=== PATIENT | female | born 1970 ===

== ENCOUNTER 2019-11-15 19:51 | Emergency (ER) | payer SELFPAY ==
--- OUTSIDE RECORDS SUMMARY | 2019-11-15 19:54 | XMS REPORT | Continuity of Care Document ---
:1970 Author Organization [facility] t Address [address] [place] [address] Care Team Providers Name Role Phone Asked, No Pcp Primary Care Physician Unavailable Cara RN Attending Clinician Unavailable Glory Gonzalez MD Attending Clinician ARLIN Attending Clinician Unavailable Payers Payer Name Policy Type Policy Effective Date Expiration Date Sour ce Number CIGNACIGNA OPEN [id number] 2006 [place] ACCESS/NETWORKxx 00:00:00 Methodis t [id number] 07-PresentHMO Problems Condition Condition Condition Status Onset Resolution Last Treating Co mments Source Name Details Category Date Date Treatment Clinician Date Depression Depression Problem Active U nivers [email or web address].[email or web address] [facility] [place] [facility] Pain in Pain in Problem Active Univers eye eye HL7.CCDAR2 [facility] [place] [facility] Vision Vision Problem Active Univers loss loss HL7.CCDAR2 [facility] [place] [facility] Fatigue Fatigue Problem Active Univers HL7.CCDAR2 [facility] [place] [facility] Blurry Blurry Problem Active Univers vision vision HL7.CCDAR2 [facility] [place] [facility] Dizziness Dizziness Problem Active Uni vers HL7.CCDAR2 [facility] [place] [facility] Migraines Migraines Problem Active Uni vers HL7.CCDAR2 [facility] [place] [facility] Difficulty Difficulty Problem Active U nivers in walking in walking HL7.CCDAR2 [facility] [place] [facility] Muscle Muscle Problem Active Univers weakness weakness HL7.CCDAR2 [facility] [place] [facility] Hypertensi Hypertensi Problem Active U nivers on on HL7.CCDAR2 [facility] [place] [facility] Muscle Muscle Problem Active Univers spasm spasm HL7.CCDAR2 [facility] [place] [facility] History of History of Problem Resolve Univers depression depression HL7.CCDAR2 d [facility] [place] [facility] History of History of Problem Resolve Univers essential essential HL7.CCDAR2 d it[place] hypertens[place]ens[place] [facility] Cervicalgi Cervicalgi Problem Active U nivers a a HL7.CCDAR2 [facility] [place] [facility] Vestibular Vestibular Problem Active U nivers migraine migraine HL7.CCDAR2 [facility] [place] [facility] Decreased Decreased Problem Active Uni vers alertness alertness HL7.CCDAR2 [facility] [place] [facility] Allergies, Adverse Reactions, Alerts This patient has no known allergies or adverse reactions. Family History Family Member Diagnosis Comments Start Date Stop Date Source Unknown Family FHx: stroke Family History Unive rsity of Member [place] [facility] natural Family history of Univers ity of daughter diabetes mellitus [place] [facility] Mother Family history of Univers ity of hypertension [place] [facility] Father Family history of Univers ity of cardiac disorder [place] [facility] Sister Family history of Univers ity of hypertension [place] [facility] Brother Family history of Univers ity of hypertension [place] [facility] Natural brother Hypertension [place] Natural father Diabetes [place] Natural father Heart disease [place] Natural father Lung cancer [place] Natural mother Hypertension [place] Natural sister Diabetes [place]ast[place] Natural sister Hypertension [place] Natural sister Thyroid disease [place] Rastaf[place] Social History Social Habit Start Date Stop Date Quantity Comments Source History [facility] Meth odist Alcohol Std Drinks History [facility] Alcohol Binge Sex Assigned At [facility] ethodist Tobacco use and 2019-07-17 2019-07-17 Never used [facility] ethodist exposure 00:00:00 00:00:00 Alcohol intake 2019-07-17 2019-07-17 Lifetime [facility] [place] [facility] thodist 00:00:00 00:00:00 non-drinker (finding) History SDOH 2018-11-22 2018-11-22 1 [place] Meth odist Alcohol Frequency 00:00:00 00:00:00 Smoking Status Start Date Stop Date Source [facility]ations Ordered Filled Start Stop Current Ordering Indication Dosage Frequency Signature Comments Components Source Medication Medication Date Date Medication? Clinician (SIG) Name Name propranolol Yes Intractable 60mg QD Take 1 Mcdaniel [place] (INDERAL 8-13 chronic capsule Me thodi [place]) 60 MG 00:00: migraine ([address] 24 hr 00 without total) by capsule aura and mouth without daily. status migrainosus QUEtiapine 2020- Yes Mixed 50mg QD TAKE 1 Vijay ston (SEROquel) 8 11-07 anxiety and TABLET (50 Methodi 50 MG 00:00: 23:59 depressive MG TOTAL) st tablet 00 :00 disorder BY MOUTH NIGHTLY FOR 90 DAYS. magnesium 2020- Yes Migraine 400mg Q.5D Take 1 [place] oxide 6- without tablet Methodi (MAG-OX) 00:00: aura and ([address] 400 mg 00 without total) by (241.3 mg status mouth 2 magnesium) migrainosus (two) tablet , not times a intractable day. ergocalcife 2019- Yes [id number] Q7D Take [place] 5-27 50,000 Methodi (VITAMIN 15:18: Units by st D2) 50,000 47 mouth once unit a week. capsule QUEtiapine 2019- No Mixed 50mg QD Take 1 Vijay ston (SEROqueL) 18 08-09 anxiety and tablet (50 Methodi 50 MG 00:00: 00:00 depressive mg total) st tablet 00 :00 disorder by mouth nightly for 90 days. QUEtiapine 2019- No 25mg QD Take 25 mg Mcdaniel (SEROquel) 07-02 05-13 by mouth Meth stuart 25 MG 12:48: 00:[address] tablet 23 :00 QUEtiapine 2019- No Mixed 25mg QD Take 1 Vijay ston (SEROquel) 5- 05-18 anxiety and tablet (25 Methodi 25 MG 00:00: 00:00 depressive mg total) st tablet 00 :00 disorder by mouth nightly. buPROPion 2019-2020- No Mixed 150mg QD Take 1 Vijay ston XL 06-16 04-27 anxiety and tablet Metho di (WELLBUTRIN 00:00: 23:59 depressive ([address] XL) 150 MG 00 :00 disorder total) by 24 hr mouth tablet daily. propranolol 2019-2019- No Intractable TAKE 1 Mcdaniel [place] (INDERAL 1-29 08-13 chronic CAPSULE BY Methodi LA) 60 MG 00:00: 00:[address] 24 hr 00 :00 without EVERY DAY capsule aura and without status migrainosus propranolol 2018-02- Intractable 60mg QD Take 1 Jonas [place] (INDERAL 02-20 chronic capsule M ethodi LA) 60 MG 00:00: 00:00 migraine (60 mg s t 24 hr 00 :00 without total) by capsule aura and mouth without daily. status migrainosus QUEtiapine 2018-02- No Moderate 25mg QD Take 1 Mcdaniel (SEROquel) 0-25 11-24 episode of tablet (25 Methodi 25 MG 00:00: 23:59 recurrent mg total) s t tablet 00 :00 major by mouth depressive nightly disorder for 30 (HCC) days. QUEtiapine 2018-02- No Moderate 25mg QD Take 1 Mcdaniel (SEROquel) 0-03 10-25 episode of tablet (25 Methodi 25 MG 00:00: 00:00 recurrent mg total) s t tablet 00 :00 major by mouth depressive nightly disorder for 30 (HCC) days. prochlorper 2018- No 10mg Q6H Take 1 Vijay ston azine 9-20 10-20 tablet (10 Methodi (COMPAZINE) 00:00: 23:59 mg total) st 10 MG 00 :00 by mouth tablet every 6 (six) hours as needed for nausea or vomiting for up to 30 days. keTOROlac 2018- No 10mg Q6H Take 1 [place] (TORadol) 9-20 09-25 tablet (10 Met hodi 10 mg 00:00: 23:59 mg total) st tablet 00 :00 by mouth every 6 (six) hours as needed for moderate pain for up to 5 days. cyclobenzap Yes 10mg Take 10 mg Mcdaniel rine 9-13 by mouth Methodi (FLEXERIL) 00:00: as needed. s t 10 mg 00 tablet losartan 2019- No 25mg QD Take 25 mg [place] (COZAAR) 25 9-13 05-18 by mouth Met hodi MG tablet 00:00: 00:[address] 00 :00 magnesium 2019- No 400mg Q.5D Take 400 [place] oxide 8-17 06-01 mg by Methodi (MAG-OX) 00:00: 00:[address] 400 mg 00 :00 (two) (241.3 mg times a magnesium) day. tablet sertraline No 100mg QD Take 100 [place] (ZOLOFT) 8-14 05-18 mg by Methodi 100 MG 00:00: 00:[address] tablet 00 :00 daily. Zoloft 50 Zoloft 50 Yes NELLY U nivers MG Oral MG Oral 1-04 SAMUDRALWA ity of Tablet Tablet 00:00: R M.D. [place] 00 Physici ans Losartan Losartan Yes NELLY Uni vers Potassium Potassium 1-04 SAMUDRALWA ity of 25 MG Oral 25 MG Oral 00:00: R M.D. [place] Tablet Tablet 00 Physici ans Cyclobenzap Cyclobenzap Yes NELLY Q0.3333D TAKE 1 Univers rine HCl - rine HCl - 1-04 SAMUDRALWA TABLET 3 ity of 10 MG Oral 10 MG Oral 00:00: R M.D. TIMES [place] Tablet Tablet 00 DAILY Physici NEEDED. ans Sertraline Sertraline Yes Uni vers HCl - 100 HCl - 100 ity o f MG Oral MG Oral [place] Tablet Tablet Physici ans Losartan Losartan Yes Univers Potassium Potassium ity o f 25 MG Oral 25 MG Oral [place] as Tablet Tablet Physici ans Cyclobenzap Cyclobenzap Yes U nivers rine HCl - rine HCl - ity of 10 MG Oral 10 MG Oral [place] as Tablet Tablet Physici ans Magnesium Magnesium Yes Unive rs 100 MG TABS 100 MG TABS i ty of [place] [facility] Vital Signs Vital Name Observation Time Observation Value Comments Source Body height 2019-07-17 172.7 cm [place] 15:17: Rastaf[place] Body weight 2019-07-17 78.019 kg [place] 15:17: Rast[place] BMI 2019-07-17 26.15 kg/m2 [place] 15:17: [place]ast[place] Systolic blood 2019-07-08 125 mm[Hg] [place] pressure 13:19:00 [place] Diastolic blood 2019-07-08 81 mm[Hg] [place] pressure 13:19:00 [place] Heart rate 2019-07-08 72 /min [place] 13:19:00 [place] Body temperature 2019-07-08 36.33 Chantelle [place] 13:19:00 [place]ast[place] BP Systolic 2018-02-23 164 mm[Hg] Location: [facility] 09:33:00 Position: [place] [facility] Sitting BP Diastolic 2018-02-23 95 mm[Hg] Location: [facility] 09:33:00 Position: [place] [facility] Height 2018-02-23 68 [in_us] [facility] 09:33:00 [place] [facility] Weight 2018-02-23 166 [lb_av] [facility] 09:33:00 [place] [facility] Body Mass Index 2018-02-23 25.24 kg/m2 University o f Calculated 09:33:00 [place] [facility] Temperature 2018-02-23 97.7 [degF] Method: Oral [facility] 09:33:00 [place] [facility] Heart Rate 2018-02-23 80 /min [facility] 09:33:00 [place] [facility] O2 SAT 2018-02-23 96 % Source: RA [facility] 09:33:00 [place] [facility] Procedures Procedure Date / Time Performed Performing Clinician Sour e GENERAL SLEEP STUDY 2018-12-31 07:05:00 Salvador Gonzalez Obada MRI Brain w/wo 2018-02-23 00:00:00 [place] f [place] contrast [id number] Physicians Plan of Care Planned Activity Planned Date Details Comments Source Future Scheduled 2019-09-21 INFLUENZA VACCINE Beto Walter Test 00:00:00 [code = INFLUENZA VACCINE] Future Scheduled 1991 Screening for [facility] [place] [facility] thodist Test 00:00:00 malignant neoplasm of cervix (procedure) [code = 856593591] Encounters Start End Encounter Admission Attending Care Care Encounter Source Date/Time Date/Time Type Type Clinicians Facility Department ID 2019-07-18 2019-07-18 Outpatient [facility] [id number] [place] 00:00:00 00:00:00 [address] 2019-07-08 2019-07-08 Outpatient [facility] [id number] [place] 00:00:00 00:00:00 [facility] 2019-06-17 2019-06-17 Outpatient [facility] [id number] [place] 00:00:00 00:00:00 [address] 2018-12-26 2018-12-26 Outpatient [facility] [id number] [place] 00:00:00 00:00:00 SALVADOR 565 Michelle [facility] 2018-07-30 2018-07-30 Appointmen ARLIN HERNANDEZ [facility] [id number] [facility] 16:00:00 16:00:00 t; , Mago VILLEGAS M.D., ROHINI Physi ci MKeagan ans 2018-02-23 2018-02-23 Appointmen ARLIN HERNANDEZ Neurology [id number] [facility] [place] [facility] 09:00:00 09:00:00 t; , Mago VILLEGAS M.D., ROHINI Physi ci MKeagan ans Results This patient has no known results.
--- OUTSIDE RECORDS SUMMARY | 2019-11-15 19:54 | XMS REPORT | Clinical Summary ---
:1970 Author Organization [facility] Address [address] [place] [address] Care Team Providers Name Role Phone Asked, No Pcp Primary Care Provider Unavailable Allergies No Known Active Allergies Medications Medication Sig Dispensed Refills Start End Date Status Date cyclobenzaprine Take 10 mg 2 Act dee (FLEXERIL) 10 mg by mouth as 9 tablet needed. buPROPion XL Take 1 30 tablet 5 06/17/19 Active (WELLBUTRIN XL) 150 tablet (150 0 21 MG 24 hr mg total) by tabletIndications: mouth daily. Mixed anxiety and depressive disorder ergocalciferol Take 50,000 0 Act dee (VITAMIN D2) 50,000 Units by unit capsule mouth once a week. magnesium oxide Take 1 180 tablet 1 Act dee (MAG-OX) 400 mg tablet (400 0 (241.3 mg magnesium) mg total) by tabletIndications: mouth 2 Migraine without aura (two) times and without status a day. migrainosus, not intractable QUEtiapine (SEROquel) TAKE 1 90 tablet 0 12/28/19 Active 50 MG TABLET (50 0 20 tabletIndications: MG TOTAL) BY Mixed anxiety and MOUTH depressive disorder NIGHTLY FOR 90 DAYS. propranolol LA Take 1 90 capsule 0 Acti ve (INDERAL LA) 60 MG 24 capsule (60 0 hr mg total) by capsuleIndications: mouth daily. Intractable chronic migraine without aura and without status migrainosus keTOROlac (TORadol) Take 1 20 tablet 0 11/15/19 10 mg tablet tablet (10 9 19 mg total) by mouth every 6 (six) hours as needed for moderate pain for up to 5 days. prochlorperazine Take 1 20 tablet 0 12/10/19 Exp ired (COMPAZINE) 10 MG tablet (10 9 19 tablet mg total) by mouth every 6 (six) hours as needed for nausea or vomiting for up to 30 days. magnesium oxide Take 400 mg 3 07/22/19 Di scontinued (MAG-OX) 400 mg by mouth 2 9 20 (Re order) (241.3 mg magnesium) (two) times tablet a day. sertraline (ZOLOFT) Take 100 mg 3 07/08/19 Discontinued 100 MG tablet by mouth 9 20 (Med L ist daily. Cleanup) losartan (COZAAR) 25 Take 25 mg 1 07/08/19 Discontinued MG tablet by mouth 9 20 (Med List daily. Cleanup) QUEtiapine (SEROquel) Take 1 30 tablet 5 12/15/19 Discontinued 25 MG tablet (25 9 19 (Reorder) tabletIndications: mg total) by Moderate episode of mouth recurrent major nightly for depressive disorder 30 days. (HCC) QUEtiapine (SEROquel) Take 1 90 tablet 1 01/14/20 25 MG tablet (25 9 19 tabletIndications: mg total) by Moderate episode of mouth recurrent major nightly for depressive disorder 30 days. (HCC) propranolol LA Take 1 30 capsule 3 03/20/19 Disc ontinued (INDERAL LA) 60 MG 24 capsule (60 9 20 hr mg total) by capsuleIndications: mouth daily. Intractable chronic migraine without aura and without status migrainosus QUEtiapine (SEROquel) Take 25 mg 0 0 Discontinued 25 MG tablet by mouth 20 (Reorde r) nightly. propranolol LA TAKE 1 90 capsule 1 10/03/19 Disc ontinued (INDERAL LA) 60 MG 24 CAPSULE BY 0 20 (Reorder) hr MOUTH EVERY capsuleIndications: DAY Intractable chronic migraine without aura and without status migrainosus QUEtiapine (SEROquel) Take 1 90 tablet 1 05/13/202 05/18/20 Discontinued 25 MG tablet (25 0 20 (Dose tabletIndications: mg total) by adjustment) Mixed anxiety and mouth depressive disorder nightly. QUEtiapine (SEROqueL) Take 1 90 tablet 0 09/29/19 Discontinued 50 MG tablet (50 0 20 tabletIndications: mg total) by Mixed anxiety and mouth depressive disorder nightly for 90 days. Active Problems Not on file Encounters Date Type Specialty Care Team Description 10/03/2019 Refill Neurology Yudith Marroquin, Intractable chronic RN migraine withou t aura and without sta tus migrainosus 09/28/2019 Refill Neurology Aleksandra Gonzalez Mixed anxi ety and MD [place] depressive diso rder 07/22/2019 Orders Only Neurology Aleksandra Gonzalez Migraine w ithout aura MD Glory and without sta tus migrainosus, no t intractable (Pr imary Dx) 07/18/2019 Telephone Consult Neurology Aleksandra Gonzalez Mixed anxiety and depressive disorder (Primary Dx); MD Glory Migraine withou t aura and without status migrainosus, not intractable; Vestibular migr stu; Bilateral occip ital neuralgia; Supraorbital ne uralgia; EJ (obstructiv e sleep apnea) 07/17/2019 Travel 07/17/2019 Telephone Neurology Yudith Marroquin, RN 07/08/2019 Office Visit Neurology Aleksandra Gonzalez Bilateral occipital neuralgia (Primary Dx); MD Glory Supraorbital ne uralgia; Mixed anxiety a nd depressive disorder; Migraine withou t aura and without status migrainosus, not intractable; Vestibular migr stu; EJ (obstructiv e sleep apnea) 07/08/2019 Travel 07/05/2019 Travel 07/04/2019 Orders Only Neurology Aleksandra Gonzalez Sudden ons et of severe MD [place] headache (Prima ry Dx) 07/03/2019 Orders Only Neurology Aleksandra Gonzalez Mixed anxi ety and [place] depressive diso rder (Primary Dx) 06/18/2019 Travel 06/17/2019 Telemedicine Neurology Aleksandra Gonzalez Mixed anxi ety and depressive disorder (Primary Dx); MD Glory Side effect of drug; Migraine withou t aura and without status migrainosus, not intractable; Bilateral occip ital neuralgia; Musculoskeletal neck pain; Supraorbital ne uralgia; Vestibular migr stu; EJ (obstructiv e sleep apnea); Essential hyper tension 03/18/2019 Refill Neurology Aleksandra Gonzalez Intractabl e chronic MD [place] migraine withou t aura and without sta tus migrainosus 01/23/2019 Office Visit Neurology Aleksandra Gonzalez Depression , unspecified depression type (Primary Dx); MD Glroy Anxiety disorde r, unspecified type; Migraine withou t aura and without status migrainosus, not intractable; Vestibular migr stu; Supraorbital ne uralgia; Bilateral occip ital neuralgia; Musculoskeletal neck pain; EJ (obstructiv e sleep apnea) 12/26/2018 Hospital Encounter Sleep Medicine Aleksandra Gonzalez Ex cessive daytime [place] sleepiness 12/21/2018 Orders Only Neurology Aleksandra Gonzalez Intracoseibl e chronic [place] migraine withou t aura and without sta tus migrainosus (Pr imary Dx) 12/17/2018 Orders Only Neurology Yudith Marroquin Excessive d aytime RN sleepiness (Nancy mervin Dx) 12/14/2018 Refill Neurology Yudith Marroquin Moderate ep isode of RN recurrent major depressive diso rder (HCC) 11/22/2018 Office Visit Neurology Aleksandra Gonzalez Moderate e pisode of recurrent major depressive disorder (HCC) (Primary Dx); MD Glory Anxiety disorde r, unspecified type; Intractable chr onic migraine without aura and without status migrainosus; Vestibular migr stu; Supraorbital ne uralgia; Bilateral occip ital neuralgia; Musculoskeletal neck pain; Excessive dayti me sleepiness; Sedentary lifes tyle 11/22/2018 Telephone Neurology Aleksandra Gonzalez MD 11/19/2018 Telephone Neurology Aleksandra Gonzalez MD after 11/14/2018 Family History Medical History Relation Name Comments Hypertension Brother Hypertension Brother Diabetes Father Heart disease Father Lung cancer Father Hypertension Mother Diabetes Sister Hypertension Sister Thyroid disease Sister Relation Name Status Comments Brother Alive Brother Alive Father Mother Sister Alive Social History Tobacco Use Types Packs/Day Years Used Date Never Smoker Smokeless Tobacco: Never Used Alcohol Use Drinks/Week oz/Week Comments Never Alcohol Habits Answer Date Recorded How often do you have a drink containing alcohol? Never 11/22/2018 How many drinks containing alcohol do you have on a typical Not asked day when you are drinking? How often do you have six or more drinks on one occasion? No t asked Sex Assigned at Date Recorded Not on file Last Filed Vital Signs Vital Sign Reading Time Taken Comments Blood Pressure 125/81 07/08/2019 1:19 PM CDT Pulse 72 07/08/2019 1:19 PM CDT Temperature 36.3 C (97.4 F) 07/08/2019 1:19 PM CDT Respiratory Rate - - Oxygen Saturation - - Inhaled Oxygen Concentration - - Weight 78 kg (172 lb) 07/17/2019 3:17 PM CDT Height 172.7 cm (5' 8") 07/17/2019 3:17 PM CDT Body Mass Index 26.15 07/17/2019 3:17 PM CDT Plan of Treatment Date Type Specialty Care Team Description 12/09/2019 Office Visit Neurology Jewels Gonzalez MD [address] [facility] [address] [place] [id number] 0 [phone] Health Maintenance Due Date Last Done Comments CERVICAL CANCER SCREENING 1991 INFLUENZA VACCINE 09/21/2019 12/24/2018, 12/19/2012 Procedures Procedure Name Priority Date/Time Associated Diagnosis Comme nts GENERAL SLEEP STUDY Routine 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
[2019-11-15] MEDS ORDERED: NA CHLORIDE 0.9% 1,000 ML ONE (20:55)
[2019-11-15] MEDS ORDERED: METOCLOPRAMIDE 10 MG/2mL INJ ONE (20:55)
[2019-11-15] MEDS ORDERED: DIPHENHYDRAMINE 50 MG/ML VIAL ONE (20:55)
[2019-11-15 21:08] LABS: Basophils % 1.1 % (0-1.3); Lymphocytes % 22.4 % (15.3-44.8); MPV 9.1 fL (7.6-11.3); RBC Red Blood Cell Count 4.27 M/uL (3.86-4.86)
[2019-11-15 21:09] LABS: ALT/SGPT 22 U/L (12-78); AST/SGOT 15 U/L (15-37); Albumin 3.6 g/dL (3.4-5.0); Alkaline Phosphatase 79 U/L (45-117); BUN Blood Urea Nitrogen 15 mg/dL (7-18); Bicarbonate 28 mmol/L (21-32); Bilirubin Direct < 0.1 mg/dL (0-0.2); Bilirubin Total 0.3 mg/dL (0.2-1.0); Glucose Level 104 mg/dL (74-106); Lipase 130 U/L (73-393); Potassium 3.6 mmol/L (3.5-5.1); Protein, Total 8.2 g/dL (6.4-8.2); Sodium Level 138 mmol/L (136-145)
--- NOTE | 2019-11-15 21:10 | RAD REPORT ---
EXAM DESCRIPTION: CT - Head Brain Wo Cont - 11/15/2019 8:58 pm CLINICAL HISTORY: DIZZINESS COMPARISON: Head Brain W Cont dated 12/23/2016; Head Brain Wo Cont dated 12/23/2016 TECHNIQUE: Axial 5 mm thick images of the head were obtained without IV contrast. All CT scans are performed using dose optimization technique as appropriate and may include automated exposure control or mA/KV adjustment according to patient size. FINDINGS: No intracranial hemorrhage, mass, edema or shift of mid-line structures. No acute infarcti on changes seen. No abnormal extra-axial fluid collections. Ventricles are normal. Mastoid air cells and visualized portions of the paranasal sinuses are clear. No acute bony findings. No significant change from prior imaging. IMPRESSION: Negative non-contrast CT head examination.
--- NOTE | 2019-11-15 21:12 | RAD REPORT ---
EXAM DESCRIPTION: CT - Abdomen Pelvis W Contrast - 11/15/2019 9:00 pm CLINICAL HISTORY: ABD PAIN COMPARISON: No comparisons TECHNIQUE: Biphasic, helical CT imaging of the abdomen and pelvis was performed following 100 ml non -ionic IV contrast. No oral contrast administered. All CT scans are performed using dose optimization technique as appropriate and may include automated exposure control or mA/KV adjustment according to patient size. FINDINGS: No suspicious findings in the lung bases. The liver, spleen, and pancreas show no suspicious findings. Gallbladder and biliary tree are also wi thout suspicious finding. Symmetric renal function is seen with no hydronephrosis or suspicious renal mass. No pyelonephritis o r acute parenchymal process. No bladder abnormalities. No adrenal abnormalities. Uterus and ovaries s how no suspicious findings. No dilated bowel loops or bowel wall thickening. No evidence for appendicitis. No free air, free flui d or inflammatory stranding. No hernia, mass or bulky lymphadenopathy. No suspicious bony findings. IMPRESSION: Contrast enhanced CT abdomen and pelvis showing no significant or suspicious finding.
[2019-11-15 23:03] LABS: Urine Blood TRACE (NEG); Urine Glucose NEGATIVE (NEG); Urine Protein NEGATIVE (NEG); Urine Specific Gravity 1.015 (1.005-1.030); Urine pH 7.5 (5.0-7.0)
--- NOTE | 2019-11-15 23:14 | EDPHYS ---
Physician Documentation [facility] Name: Manjit Copeland Age: 49 yrs Sex: Female : 1970 Arrival Date: 11/15/2019 Time: 20:00 Bed 5 Private MD: ED Physician Jer Weiner HPI: 11/14 20:31 This 49 yrs old Unknown Female presents to ER via EMS with complaints of mh7 Nausea/Vomiting, Dizziness. 20:31 The patient presents to the emergency department with nausea, that is moderate, mh7 vomiting, that is intermittent, abdominal pain, of the epigastric area, described as intermittent, vague,\E\ waxing and waning, Dizziness with spinning sensation. Onset: The symptoms/episode began/occurred today. Possible causes: unknown. The symptoms are aggravated by nothing. The symptoms are alleviated by nothing. Associated signs and symptoms: Pertinent positives: abdominal pain, nausea, vomiting, Pertinent negatives: anorexia, belching, constipation, diarrhea, dysuria, fever, flatulence, GI bleeding, hematuria, vaginal discharge. Severity of symptoms: At their worst the symptoms were moderate today, in the emergency department the symptoms have improved moderately. 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 - Social history:: Smoking status: unknown. ROS: 20:31 Constitutional: Negative for fever, chills, and weight loss, Eyes: Negative for injury, mh7 pain, redness, and discharge, ENT: Negative for injury, pain, and discharge, Neck: Negative for injury, pain, and swelling, Cardiovascular: Negative for chest pain, palpitations, and edema, Respiratory: Negative for shortness of breath, cough, wheezing, and pleuritic chest pain, Back: Negative for injury and pain, : Negative for injury, bleeding, discharge, and swelling, MS/Extremity: Negative for injury and deformity, Skin: Negative for injury, rash, and discoloration. 20:31 Allergy/Immunology: Negative for hives, rash, and allergies, Endocrine: Negative for neck swelling, polydipsia, polyuria, polyphagia, and marked weight changes, Hematologic/Lymphatic: Negative for swollen nodes, abnormal bleeding, and unusual bruising. 20:31 Neuro: 20:31 Psych: Positive for depression, Negative for auditory hallucinations, visual hallucinations, homicidal ideation, suicide gesture, suicidal ideation. Exam: 20:31 Head/Face: Normocephalic, atraumatic. Eyes: Pupils equal round and reactive to light, mh7 extra-ocular motions intact. Lids and lashes normal. Conjunctiva and sclera are non-icteric and not injected. Cornea within normal limits. Periorbital areas with no swelling, redness, or edema. ENT: Nares patent. No nasal discharge, no septal abnormalities noted. Tympanic membranes are normal and external auditory canals are clear. Oropharynx with no redness, swelling, or masses, exudates, or evidence of obstruction, uvula midline. Mucous membranes moist. Neck: Trachea midline, no thyromegaly or masses palpated, and no cervical lymphadenopathy. Supple, full range of motion without nuchal rigidity, or vertebral point tenderness. No Meningismus. Chest/axilla: Normal chest wall appearance and motion. Nontender with no deformity. No lesions are appreciated. Cardiovascular: Regular rate and rhythm with a normal S1 and S2. No gallops, murmurs, or rubs. Normal PMI, no JVD. No pulse deficits. Respiratory: Lungs have equal breath sounds bilaterally, clear to auscultation and percussion. No rales, rhonchi or wheezes noted. No increased work of breathing, no retractions or nasal flaring. Abdomen/GI: Soft, non-tender, with normal bowel sounds. No distension or tympany. No guarding or rebound. No evidence of tenderness throughout. Back: No spinal tenderness. No costovertebral tenderness. Full range of motion. Skin: Warm, dry with normal turgor. Normal color with no rashes, no lesions, and no evidence of cellulitis. MS/ Extremity: Pulses equal, no cyanosis. Neurovascular intact. Full, normal range of motion. Neuro: Awake and alert, GCS 15, oriented to person, place, time, and situation. Cranial nerves II-XII grossly intact. Motor strength 5/5 in all extremities. Sensory grossly intact. Cerebellar exam normal. Normal gait. 20:31 Constitutional: The patient appears in no acute distress, alert, awake, anxious. 20:31 Psych: Behavior/mood is pleasant, cooperative, anxious, depressed, Affect is calm, Oriented to person, place, time, Patient has no thoughts/intents to harm self or others. Judgement / Insight is normal. Memory is normal. Delusions/hallucinations are not present. Vital Signs: 20:00 BP 145 / 89; Pulse 77; Resp 16 S; Temp 98.2(O); Pulse Ox 99% on R/A; Weight 70.76 kg bb (R); Height 5 ft. 8 in. (172.72 cm) (R); Pain 6/10; 21:00 BP 134 / 95; Pulse 78; Resp 18; Pulse Ox 96% on R/A; lp1 22:00 BP 124 / 75; Pulse 63; Resp 16; Pulse Ox 98% on R/A; lp1 23:15 BP 115 / 72; Pulse 65; Resp 19; Pulse Ox 99% ; rr5 20:00 Body Mass Index 23.72 (70.76 kg, 172.72 cm) bb MDM: 20:37 Patient medically screened. 7 23:11 Differential diagnosis: Nonspecific abd pain, gastritis, cholecystitis, pancreatitis, mh7 appendicitis, diverticulitis, viral gastroenteritis, gastroenteritis, Vertigo. Data reviewed: vital signs, nurses notes, lab test result(s), cardiac enzymes, CBC, electrolytes, urinalysis, EKG, radiologic studies, CT scan, plain films. Data interpreted: Pulse oximetry: on room air is 98 %. Interpretation: normal. Counseling: I had a detailed discussion with the patient and/or guardian regarding: the historical points, exam findings, and any diagnostic results supporting the discharge/admit diagnosis, lab results, radiology results, the need for outpatient follow up, to return to the emergency department if symptoms worsen or persist or if there are any questions or concerns that arise at home. Response to treatment: the patient's symptoms have resolved after treatment, the patient's blood pressure is in an acceptable range, mental status has returned to baseline, the patient no longer shows bradycardia, the patient is not short of breath, the patient is not tachycardic, the patient's pain is gone, the patient's temperature has normalized. 11/14 20:28 Order name: Basic Metabolic Panel; Complete Time: 21:48 11/14 20:28 Order name: CBC with Diff; Complete Time: 21:48 11/14 20:28 Order name: Hepatic Function; Complete Time: 21:48 11/14 20:28 Order name: Lipase; Complete Time: 21:48 11/14 20:28 Order name: UDS [facility] 11/14 20:28 Order name: Acetaminophen; Complete Time: 21:48 11/14 20:28 Order name: Salicylate; Complete Time: 21:48 [facility] 11/14 20:28 Order name: ETOH Level; Complete Time: 21:48 [facility] 11/14 20:29 Order name: CT Head Brain wo Cont; Complete Time: 21:48 [facility] 11/14 20:29 Order name: CT Abd/Pelvis - IV Contrast Only; Complete Time: 21:48 [facility] 11/14 21:18 Order name: CREATININE WHOLE BLOOD; Complete Time: 21:48 [facility] 11/14 22:16 Order name: Troponin (emerg Dept Use Only); Complete Time: 23:10 [facility] 11/14 22:57 Order name: Urine Dipstick--Ancillary (enter results); Complete Time: 23:10 [facility] 11/14 23:12 Order name: Urine --Ancillary (enter results) [facility] 11/14 20:28 Order name: IV Saline Lock; Complete Time: 20:40 11/14 20:28 Order name: Labs collected and sent; Complete Time: 20:41 [facility] 11/14 20:28 Order name: Urine Dipstick-Ancillary (obtain specimen); Complete Time: 23:11 11/14 20:28 Order name: Urine Test (obtain specimen); Complete Time: 23:11 [facility] 11/14 20:28 Order name: EKG - Nurse/Tech; Complete Time: 20:52 Administered Medications: 21:30 Drug: NS 0.9% 1000 ml Route: IV; Rate: 125 ml/hr; Site: left antecubital; lp1 23:33 Follow up: Response: No adverse reaction; IV Status: Order to discontinue infusion; IV rr5 Intake: 250ml 21:30 Drug: Reglan 10 mg Route: IVP; Site: left antecubital; lp1 22:30 Follow up: Response: Marked relief of symptoms lp1 21:30 Drug: Benadryl 25 mg Route: IVP; Site: left antecubital; lp1 23:12 Follow up: Response: Marked relief of symptoms lp1 Disposition: 11/15/19 23:14 Discharged to Home. Impression: Abdominal Pain, Vertigo, Depression. - Condition is Stable. - Discharge Instructions: Abdominal Pain, Adult, [id number], Vertigo, Dvoi-[id number]-Fiea, Major Depressive Disorder, [id number]. - Prescriptions for Zofran ODT 4 mg Oral tablet,disintegrating - place 1 tablet by TRANSLINGUAL route every 8 hours As needed; 6 tablet. Meclizine 25 mg Oral Tablet - take 1 tablet by ORAL route every 8 hours As needed; 10 tablet. Pepcid 20 mg Oral Tablet - take 1 tablet by ORAL route every 12 hours for 5 days; 10 tablet. - Medication Reconciliation Form, Thank You Letter, Antibiotic Education, Prescription Opioid Use form. - Follow up: Private Physician; When: 1 - 2 days; Reason: Worsening of condition, Recheck today's complaints, Continuance of care, Re-evaluation by your physician. Follow up: Carlton Berger MD; When: 1 - 2 days; Reason: Worsening of condition, Recheck today's complaints. - Problem is new. - Symptoms have improved. Signatures: Dispatcher [employer] EDMS Hailee Ambriz RN RN bb Michaela Cummings RN RN lp1 Sacha Gonsalves RN RN rr5 Jer Weiner MD MD 7 Corrections: (The following items were deleted from the chart) 23:33 23:14 11/15/2019 23:14 Discharged to Home. Impression: Abdominal Pain; Vertigo; rr5 Depression. Condition is Stable. Forms are Medication Reconciliation Form, Thank You Letter, Antibiotic Education, Prescription Opioid Use. Follow up: Private Physician; When: 1 - 2 days; Reason: Worsening of condition, Recheck today's complaints, Continuance of care, Re-evaluation by your physician. Follow up: Carlton Berger; When: 1 - 2 days; Reason: Worsening of condition, Recheck today's complaints. Problem is new. Symptoms have improved. 7
--- NOTE | 2019-11-15 23:14 | ER ---
Nurse's Notes [facility] Name: Manjit Copeland Age: 49 yrs Sex: Female : 1970 Arrival Date: 11/15/2019 Time: 20:00 Bed 5 Private MD: Diagnosis: Abdominal Pain;Vertigo;Depression Presentation: 11/14 20:00 Chief complaint: EMS states: they were toned out for report of pt with nausea, bb vomiting, and dizziness since 1600 today. Coronavirus screen: At this time, the client does not indicate any symptoms associated with coronavirus-19. Ebola Screen: No symptoms or risks identified at this time. Initial Sepsis Screen: Does the patient meet any 2 criteria? No. Patient's initial sepsis screen is negative. Does the patient have a suspected source of infection? No. Patient's initial sepsis screen is negative. Risk Assessment: Do you want to hurt yourself or someone else? Patient reports no desire to harm self or others. Onset of symptoms was November 15, 2019. 20:00 Method Of Arrival: EMS: [facility] bb 20:00 Acuity: MALGORZATA 3 bb Triage Assessment: 20:06 General: Appears in no apparent distress. Behavior is cooperative, crying. GI: Reports bb nausea, vomiting. 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 - Social history:: Smoking status: unknown. Screenin:05 Abuse screen: Denies threats or abuse. Denies injuries from another. Nutritional lp1 screening: No deficits noted. Tuberculosis screening: No symptoms or risk factors identified. Fall Risk None identified. Assessment: 20:04 General: Appears in no apparent distress. Behavior is anxious, crying. Pain: Complains lp1 of pain in epigastric area. Neuro: Level of Consciousness is awake, alert, obeys commands, Oriented to person, place, time, situation, Reports dizziness, since 1600. Cardiovascular: Patient's skin is warm and dry. Respiratory: Respiratory effort is even, unlabored. GI: Abdomen is non-distended, Reports upper abdominal pain, States nausea relief at this time. : No signs and/or symptoms were reported regarding the genitourinary system. EENT: No signs and/or symptoms were reported regarding the EENT system. Derm: Skin is pink, warm \T\ dry. Musculoskeletal: No deficits noted. 21:20 Reassessment: Patient appears in no apparent distress at this time. Patient states lp1 feeling like she has a migraine; denies nausea at this time. 22:20 Reassessment: Patient appears in no apparent distress at this time. Patient is alert, rr5 oriented x 3, equal unlabored respirations, skin warm/dry/pink. 23:00 Reassessment: Patient and/or family updated on plan of care and expected duration. Pain lp1 level reassessed. Patient states relief of migraine headache; states readiness for discharge; friend at bedside. 23:30 Reassessment: Patient appears in no apparent distress at this time. Patient is alert, rr5 oriented x 3, equal unlabored respirations, skin warm/dry/pink. discharge instruction given and explained without complaints made. Patient states feeling better. Patient states symptoms have improved. Vital Signs: 20:00 BP 145 / 89; Pulse 77; Resp 16 S; Temp 98.2(O); Pulse Ox 99% on R/A; Weight 70.76 kg bb (R); Height 5 ft. 8 in. (172.72 cm) (R); Pain 6/10; 21:00 BP 134 / 95; Pulse 78; Resp 18; Pulse Ox 96% on R/A; lp1 22:00 BP 124 / 75; Pulse 63; Resp 16; Pulse Ox 98% on R/A; lp1 23:15 BP 115 / 72; Pulse 65; Resp 19; Pulse Ox 99% ; rr5 20:00 Body Mass Index 23.72 (70.76 kg, 172.72 cm) bb ED Course: 19:55 Maintain EMS IV. Dressing intact. Good blood return noted. Site clean \T\ dry. Gauge \T\ lp 1 site: 20 g IV to L AC. 20:00 Patient arrived in ED. bb 20:03 Jer Weiner MD is Attending Physician. 7 20:05 Triage completed. bb 20:06 Arm band placed on. lp1 20:06 Patient has correct armband on for positive identification. Bed in low position. Call bb light in reach. Side rails up X2. Pulse ox on. NIBP on. 20:40 Michaela Cummings, RN is Primary Nurse. lp1 20:58 CT Head Brain wo Cont In Process Unspecified. EDMS 21:00 CT Abd/Pelvis - IV Contrast Only In Process Unspecified. EDMS 23:13 Carlton Berger MD is Referral Physician. [facility] 23:32 No provider procedures requiring assistance completed. IV discontinued, intact, rr5 bleeding controlled, No redness/swelling at site. Pressure dressing applied. Administered Medications: 21:30 Drug: NS 0.9% 1000 ml Route: IV; Rate: 125 ml/hr; Site: left antecubital; lp1 23:33 Follow up: Response: No adverse reaction; IV Status: Order to discontinue infusion; IV rr5 Intake: 250ml 21:30 Drug: Reglan 10 mg Route: IVP; Site: left antecubital; lp1 22:30 Follow up: Response: Marked relief of symptoms lp1 21:30 Drug: Benadryl 25 mg Route: IVP; Site: left antecubital; lp1 23:12 Follow up: Response: Marked relief of symptoms lp1 Intake: 23:33 IV: 250ml; Total: 250ml. rr5 Outcome: 23:14 Discharge ordered by . 7 23:32 Discharged to home ambulatory, with friend. rr5 23:32 Condition: stable 23:32 Discharge instructions given to patient, Instructed on discharge instructions, follow up and referral plans. medication usage, Demonstrated understanding of instructions, follow-up care, medications, Prescriptions given X 3. 23:33 Patient left the ED. rr5 Signatures: Dispatcher [employer] EDMS Hailee Ambriz RN RN bb Michaela Cummings, RN RN lp1 Sacha Gonsalves RN RN rr5 Jer Weiner MD MD [facility]
[2019-11-15 23:15] LABS: Barbiturates NEGATIVE (NEGATIVE); Benzodiazepines NEGATIVE (NEGATIVE); Cocaine NEGATIVE (NEGATIVE); METHAMPHETAM NEGATIVE (NEGATIVE); Methadone NEGATIVE (NEGATIVE); Opiates NEGATIVE (NEGATIVE); Phencyclidine NEGATIVE (NEGATIVE); THC Cannibis NEGATIVE (NEGATIVE)
[2019-11-15 23:16] LABS: Urine Specific Gravity 1.015 (1.005-1.030)
[2019-11-15 23:40] VITALS: TEMP 98.2
[2019-11-15 23:44] VITALS: BP 115/72; O2SAT 99
== END 2019-11-15 23:33 | disposition home or self-care (01) ==
LOC: ER 19:51
DX: R42 Dizziness and giddiness (principal); F32.9 Major depressive disorder, single episode, unspecified; Z88.2 Allergy status to sulfonamides
CPT/HCPCS: 36415; 70450; 74177; 80048; 80076; 80307; 80320; 80329; 81003; 81025; 82565; 83690; 84484; 85025; 93005; 96361; 96374; 96375; 99284; J1200; J2765; J7030; Q9967